=== PATIENT | female | born 1990 | race Caucasian/White ===

== ENCOUNTER 2021-08-11 14:02 | Emergency (ER) | payer OTHER, SELFPAY ==
[2021-08-11] MEDS ORDERED: Ventolin HFA Inhaler 60 PUFF INHALER ONE (15:06)
== END 2021-08-11 14:53 | disposition home or self-care (01) ==
LOC: CSHERS 14:02
DX: J20.9 Acute bronchitis, unspecified (principal)
CPT/HCPCS: 99283

== ENCOUNTER 2022-12-13 15:14 | Emergency (ER) | payer SELFPAY ==
[2022-12-13 16:37] LABS: SARS-CoV-2 NAA Rapid Test Not Detected (NotDetected)
[2022-12-13] MEDS ORDERED: Dexamethasone 10 MG/ML VIAL ONE (17:00)
[2022-12-13] MEDS ORDERED: Ipratropium/Albuterol 3 ML NEB ONE ×3 (17:21→17:22)
[2022-12-13] MEDS ORDERED: Ketorolac Tromethamine 30 MG/ML VIAL ONE (18:11)
== END 2022-12-13 18:12 | disposition home or self-care (01) ==
LOC: CSHERS 15:14
DX: J45.909 Unspecified asthma, uncomplicated (principal); Z20.822 Contact with and (suspected) exposure to COVID-19
CPT/HCPCS: 71045; 93005; 94640; 96372; J1100; J1885; J7620

== ENCOUNTER 2025-01-27 07:28 | Emergency (ER) | payer SELFPAY ==
[2025-01-27] MEDS ORDERED: Ondansetron PF 4 MG/2 ML Vial ONE (08:15)
[2025-01-27] MEDS ORDERED: Famotidine/PF 20 mg/2ml Vial ONE (08:15)
[2025-01-27] MEDS ORDERED: Ketorolac Tromethamine 30 MG (1 mL) VIAL ONE (08:15)
[2025-01-27 08:43] LABS: #Basophils 0.04 10x3/uL (0.0-0.2); #Eosinophils 0.07 10x3/uL (0.0-0.5); #Monocytes 0.31 10x3/uL (0.0-1.1); #Neutrophils 4.17 10x3/uL (1.5-8.4); %Basophils 0.6 % (0.0-2.0); %Eosinophils 1.0 % (0.0-6.0); %Lymphocytes 33.1 % (18.0-47.0); %Monocytes 4.5 % (0.0-10.0); %Neutrophils 60.5 % (40.0-75.0); Hematocrit 42.3 % (34.9-44.5); Hemoglobin 14.9 g/dL (12.0-15.5); Mean Corpuscular Hemoglobin 30.5 pg (27.0-33.0); Mean Corpuscular Volume 86.5 fL (81.6-98.3); Platelet Count 250 10x3/uL (150-450); Red Blood Cell (RBC) Count 4.89 10x6/uL (3.90-5.03); White Blood Cell (WBC) Count 6.89 10x3/uL (3.5-10.5)
[2025-01-27 08:50] LABS: BHCG - Serum Negative (NEGATIVE); Pregs Control Background? CLEAR/WHITE (CLR/WHITE); Pregs Control Bar Appear? YES (CONTROL BAR)
[2025-01-27 09:00] LABS: Troponin I Less than 0.010 ng/mL (< 0.028)
[2025-01-27 09:05] LABS: ALT (SGPT) 13 U/L (Less than 34); AST (SGOT) 13 U/L (11-34); Albumin 4.6 g/dL (3.1-4.5); Alkaline Phosphatase 62 U/L (40-110); Anion Gap 15 mmol/L (10-20); BUN (Urea Nitrogen) 10 mg/dL (7.0-18.7); Bilirubin, Total 0.8 mg/dL (0.3-1.2); Calc. Creatinine Clearance 0 mL/min (70-130); Calcium 9.4 mg/dL (7.8-10.44); Carbon Dioxide 26 mmol/L (22-29); Chloride 105 mmol/L (98-107); Globulin 3.3 g/dL (2.4-3.5); Glucose 103 mg/dL (70-105); Lipase 39 U/L (8-78); Magnesium 2.1 mg/dL (1.6-2.6); Potassium 3.6 mmol/L (3.5-5.1); Sodium 142 mmol/L (136-145)
== END 2025-01-27 10:18 | disposition home or self-care (01) ==
LOC: CSHERS 07:28
DX: R07.89 Other chest pain (principal); R10.11 Right upper quadrant pain; R29.700 NIHSS score 0
CPT/HCPCS: 71045; 76705; 80053; 83690; 83735; 84484; 84703; 85025; 93005; 96374; 96375; J1308; J1885; J2405